=== PATIENT | female | born 1960 | race Caucasian/White ===

== ENCOUNTER 2016-12-22 11:19 | Emergency (ER) | payer OTHER ==
[2016-12-22] MEDS ORDERED: ASPIRIN CHEW 81 MG TABLET PO STA (14:06)
[2016-12-22] MEDS ORDERED: ASPIRIN CHEW 81 MG TABLET ONE (14:09)
== END 2016-12-22 14:41 | disposition home or self-care (01) ==
DX: G45.9 Transient cerebral ischemic attack, unspecified (principal); R03.0 Elevated blood-pressure reading, without diagnosis of hypertension; R29.700 NIHSS score 0
CPT/HCPCS: 36415; 70450; 80053; 83690; 85025; 93005; 93010; 93880; 99283; 99284; A9270

== ENCOUNTER 2017-05-08 07:00 | Day surgery (SDC) | payer OTHER ==
[2017-05-08] MEDS ORDERED: LACTATED RINGERS 1,000 ML IV ONE (07:28)
--- NOTE | 2017-05-08 08:14 | HISTORY & PHYSICAL EXAMINATION ---
HPI - History of Present Illness HPI Comment/Other: History of Present Illness: Consult: Screening colonoscopy....................................................................G marck Burgess RN February 21, 2017 8:22 AM Iza is here for surveillance colonoscopy Current Meds: DAILY MULTIPLE VITAMINS/MIN ORAL TABS (MULTIPLE VITAMINS-MINERALS) ASPIRIN EC 81 MG TBEC (ASPIRIN) Take one tablet by mouth daily Allergies: Past Medical History: Reviewed history and no changes required: Hyperlipidemia TIA Past Surgical History: Reviewed history and no changes required: Colonoscopy age 42 Family History Summary: Reviewed history and no changes required: 02/21/2017 Mother (biol.) - Has Family History of Hypertension - Entered On: 02/21/2017 Father (biol.) - Has Family History of Other Cancer - Entered On: 02/21/2017 General Comments - FH: Prostate cancer Social History: Reviewed history and no changes required: Risk Factors: Smoked Tobacco Use: Never smoker Alcohol use: yes Drinks per day: <1 Exercise: yes Times per week: 7 Review of Systems See HPI Physical Exam General: well developed, well nourished, in no acute distress Lungs: clear bilaterally to A & P Heart: regular rate and rhythm, S1, S2 without murmurs, rubs, gallops, or clicks Abdomen: bowel sounds positive; abdomen soft and non-tender without masses, organomegaly, or hernias noted Pulses: pulses normal in all 4 extremities Extremities: no clubbing, cyanosis, edema, or deformity noted with normal full range of motion of all joints Cervical Nodes: no significant adenopathy Psych: alert and cooperative; normal mood and affect; normal attention span and concentration Problems: Problems Added: 1) Dx of Hyperlipidemia (LER64-E30.5) (ICD-272.4) Impression & Recommendations: Problem # 1: surveillance for colon cancer Will proceed with colonoscopy PMH/PSH - Past Medical History Cardiovascular: positive: Hypertension Respiratory: positive: None Endocrine/Autoimmune: positive: None GI: positive: None : positive: None HEENT: positive: None Psych: positive: None Musculoskeletal: positive: None Derm: positive: None MRSA Hx?: No - Past Surgical History 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 HEENT: positive: Tonsil/Adenoidectomy Social & Family Hx - Social History Does the pt smoke?: No Smoking Status: Never smoker Does the pt drink ETOH?: Yes ETOH Use: Wine, Beer Does the pt have substance abuse?: No - POLST Patient has POLST: No Meds/Allgy - Home Medications Home Medications: Ambulatory Orders Medication Instructions Recorded Confirmed Aspirin [Adult Low Dose Aspirin EC] 1 DAILY 05/08/17 - Allergies Allergies/Adverse Reactions: Allergies Allergy/AdvReac Type Severity Reaction Status Date / Time No Known Drug Allergies Allergy Verified 12/22/16 11:36 Exam - Vital Signs Vital Signs: Vital Signs x48h Temp Pulse Resp BP Pulse Ox 05/08/17 07:12 36.3 C L 81 16 114/86 H 98
[2017-05-08] MEDS ORDERED: MIDAZOLAM 2 MG/2 ML VIAL IVP ONE (08:24)
[2017-05-08] MEDS ORDERED: fentaNYL 100 MCG/2 ML VIAL IVP ONE (08:24)
[2017-05-08 09:32] VITALS: BP 100/56
== END 2017-05-08 07:01 | disposition home or self-care (01) ==
LOC: SDS 07:00
PROVIDERS: ATTEND Surgery
PROC: 0DBH8ZX Excision of Cecum, Via Natural or Artificial Opening Endoscopic, Diagnostic (ICD-10-PCS; principal; 2017-05-08 08:15)
DX: Z12.11 Encounter for screening for malignant neoplasm of colon (principal); D12.0 Benign neoplasm of cecum; K64.8 Other hemorrhoids; K57.30 Diverticulosis of large intestine without perforation or abscess without bleeding; Z80.0 Family history of malignant neoplasm of digestive organs; E78.5 Hyperlipidemia, unspecified; I10 Essential (primary) hypertension; Z79.82 Long term (current) use of aspirin; Z80.42 Family history of malignant neoplasm of prostate; Z86.73 Personal history of transient ischemic attack (TIA), and cerebral infarction without residual deficits
CPT/HCPCS: 45380; J7120; 88305

== ENCOUNTER 2017-08-25 13:16 | Outpatient (CLI) | payer OTHER ==
--- NOTE | 2017-08-26 18:31 | Mammography Report ---
DIGITAL SCREENING MAMMOGRAM: 08/25/2017 CLINICAL INDICATION: A 57-year-old with history of late childbearing for screening. COMPARISON: 02/2016, 02/2014, 02/2013, 01/2012, 01/2011. TECHNIQUE: Routine CC and MLO projections were obtained of the breasts. FINDINGS: Scattered fibroglandular tissue is present within the breasts. There are no dominant mass es, suspicious microcalcifications, or secondary signs of malignancy. In comparison to the previous studies, there are no significant changes. ASSESSMENT: NO MAMMOGRAPHIC EVIDENCE OF MALIGNANCY. NO SIGNIFICANT INTERVAL CHANGES. RECOMMENDATION: Screening mammography is recommended annually. BIRADS category 1 - negative. STANDARD QUALIFYING STATEMENTS 1. This examination was reviewed with the aid of Computed-Aided Detection (CAD). 2. A negative or benign imaging report should not delay biopsy if clinically suspicious findings are present. Consider surgical consultation if warranted. More than 5% of cancers are not identified b y imaging. 3. Dense breasts may obscure an underlying neoplasm. JOB #: [id number] EXT JOB #:[id number]
== END 2017-08-25 13:17 | disposition home or self-care (01) ==
LOC: DI.S 13:16
PROVIDERS: ATTEND Obstetrics & Gynecology
DX: Z12.31 Encounter for screening mammogram for malignant neoplasm of breast (principal)
CPT/HCPCS: 77067

== ENCOUNTER 2019-10-08 09:29 | Outpatient (CLI) | payer OTHER ==
--- NOTE | 2019-10-08 10:28 | Mammography Report ---
Reason: ROUTINE MAMMO Procedure Date: 10/08/2019 Accession Number: [id number] / [id number] Procedure: MGS - Screening Mammo Dig Bilat CPT Code: Final Report FULL RESULT: EXAM: Screening Mammo Dig Bilat DATE: 10/08/2019 9:55 AM CLINICAL HISTORY: Screening encounter. History of late childbearing. TECHNIQUE: (B) - Bilateral CC, laterally exaggerated CC, MLO views were obtained. COMPARISON: 08/25/2017 through 01/22/2011. PARENCHYMAL PATTERN: (D) - The breast(s) demonstrate(s) heterogeneously dense fibroglandular parenchyma. FINDINGS: There are no suspicious masses, calcifications, or areas of distortion. IMPRESSION: Negative examination. BI-RADS category 1. RECOMMENDATION: (ANNUAL) - Recommend routine annual screening mammography. BI-RADS CATEGORY: (1) - Negative. STANDARD QUALIFYING STATEMENTS: 1. This examination was reviewed with the aid of Computer-Aided Detection (CAD). 2. A negative or benign imaging report should not preclude biopsy if clinically suspicious findings are present. 3. Dense breasts may obscure an underlying neoplasm. 4. This examination was reviewed without the aid of 3D breast imaging (tomosynthesis).
== END 2019-10-08 09:30 | disposition home or self-care (01) ==
LOC: DI.S 09:29
PROVIDERS: ATTEND Physician Assistant
DX: Z12.31 Encounter for screening mammogram for malignant neoplasm of breast (principal)
CPT/HCPCS: 77067

== ENCOUNTER 2021-06-04 14:11 | Outpatient (CLI) | payer OTHER ==
--- NOTE | 2021-06-05 13:45 | Mammography Report ---
BILATERAL DIGITAL SCREENING MAMMOGRAM 3D/2D WITH EXAGGERATED CC: 06/04/2021 CLINICAL: Family history of breast cancer. Comparison is made to exams dated: 10/08/2019 mammogram, 08/25/2017 mammogram, 03/01/2016 mammogram, a nd 03/04/2014 mammogram - [facility]. There are scattered fibroglandular elements i n both breasts. No significant masses, calcifications, or other findings are seen in either breast. There has been no significant interval change. IMPRESSION: NEGATIVE There is no mammographic evidence of malignancy. A 1 year screening mammogram is recommended. This exam was interpreted at Station ID: [id number]. NOTE: For mammograms, a report in lay terms will be sent to the patient. Approximately 15% of breast malignancies will not be visualized mammographically. In the management of a palpable breast mass, a negative mammogram must not discourage biopsy of a clinically suspicious lesion. Electronically Signed By: Jamie Goins M.D. slc/penrad:06/04/2021 16:50:38 ACR BI-RADS Category 1: Negative 3341F PARENCHYMAL PATTERN: (A) - The breast(s) demonstrate(s) scattered fibroglandular densities. BI-RADS CATEGORY: (1) - 1 RECOMMENDATION: (ANNUAL) - Recommend routine annual screening mammography. [id number] 1 year screening LATERALITY: (B)
== END 2021-06-04 14:12 | disposition home or self-care (01) ==
LOC: DI.S 14:11
PROVIDERS: ATTEND Physician Assistant
DX: Z12.31 Encounter for screening mammogram for malignant neoplasm of breast (principal)

== ENCOUNTER 2022-08-12 13:58 | Outpatient (CLI) | payer OTHER ==
--- NOTE | 2022-08-13 11:30 | Mammography Report ---
BILATERAL DIGITAL SCREENING MAMMOGRAM 3D/2D: 08/12/2022 CLINICAL: Routine screening. Family history of breast cancer. Comparison is made to exams dated: 06/04/2021 mammogram, 10/08/2019 mammogram, 08/25/2017 mammogram, mammogram, 03/04/2014 mammogram, and 02/15/2013 mammogram - [facility]. There are scattered areas of fibroglandular density in both breasts (category b / 25%-50% glandular t issue). No significant masses, calcifications, or other findings are seen in either breast. There has been no significant interval change. IMPRESSION: NEGATIVE There is no mammographic evidence of malignancy. A 1 year screening mammogram is recommended. Based on the Tyrer Cuzick model (a risk assessment model) the patients lifetime risk is 7.8% and her 10 year risk is 3.1%. According to the ACR, ACS, and NCCN guidelines, an annual breast MRI exam sony g with mammogram is recommended if the patients lifetime risk is 20% or greater. This exam was interpreted at Station ID: [id number]. NOTE: For mammograms, a report in lay terms will be sent to the patient. Approximately 15% of breast malignancies will not be visualized mammographically. In the management of a palpable breast mass, a negative mammogram must not discourage biopsy of a clinically suspicious lesion. Electronically Signed By: Eugene Cortes M.D., jr/samia:08/12/2022 15:25:36 ACR BI-RADS Category 1: Negative 3341F PARENCHYMAL PATTERN: (A) - The breast(s) demonstrate(s) scattered fibroglandular densities. BI-RADS CATEGORY: (1) - 1 RECOMMENDATION: (ANNUAL) - Recommend routine annual screening mammography. [id number] 1 year screening LATERALITY: (B)
== END 2022-08-12 13:59 | disposition home or self-care (01) ==
LOC: DI.S 13:58
PROVIDERS: ATTEND Nurse Practitioner
DX: Z12.31 Encounter for screening mammogram for malignant neoplasm of breast (principal); Z80.3 Family history of malignant neoplasm of breast

== ENCOUNTER 2022-09-06 12:06 | Day surgery (SDC) | payer OTHER ==
[2022-09-06] MEDS ORDERED: LACTATED RINGERS 1,000 ML IV ONE ×2 (12:41→14:59)
--- NOTE | 2022-09-06 14:06 | ANESTHESIA ---
Pre-Anesthesia VS, & Labs - Diagnosis screening, history of polyps - Procedure colonoscopy Vital Signs: Temp Pulse Resp BP Pulse Ox O2 Flow Rate 36.4 C L 77 16 142/100 H 100 09/06/22 12:24 09/06/22 12:24 09/06/22 12:24 09/06/22 12:24 09/06/22 12:24 Height: 5 ft 1 in Weight (kg): 55.5 kg Body Mass Index: 23.1 BMI Classification: Normal - NPO >8 hours - Is Patient ?: No Home Medications and Allergies Aspirin [Adult Low Dose Aspirin EC] 1 DAILY 05/08/17 Allergies/Adverse Reactions: Allergies Allergy/AdvReac Type Severity Reaction Status Date / Time No Known Drug Allergies Allergy Verified 12/22/16 11:36 Anes History & Medical History - Anesthetic History Anesthesia Complications: reports: No previous complications - Medical History Cardiovascular: reports: Hypertension, High cholesterol Pulmonary: reports: None Gastrointestinal: reports: Colon polyps, Diverticulitis, Other Urinary: reports: None Musculoskeletal: reports: None Endocrine/Autoimmune: reports: None Skin: reports: None Smoking Status: Never smoker Psychosocial: reports: Alcohol (rare) History of Cancer?: No - Surgical History General: reports: Colonoscopy Eyes Ears Nose Throat (EENT): reports: Tonsil/Adenoidectomy Gynecologic: reports: Dilation and currettage Exam General: Alert, Oriented x3 Dental: WNL Mouth Opening: Greater than 4 Fingerbreadths Neck Mobility: Normal Mallampati classification: III Thyromental Distance: greater than 6 cm Respiratory: Lungs clear Cardiovascular: Regular rate Plan Anesthesia Type: Total IV Consent for Procedure(s) Verified and Reviewed: Yes Code Status: Attempt Resuscitation ASA classification: 2-Mild systemic disease Is this case an emergency?: No
[2022-09-06] MEDS ORDERED: PROPOFOL 500 MG/50 ML 500 MG/50 ML VIAL ONE (14:22)
[2022-09-06 15:23] VITALS: BP 140/98
--- NOTE | 2022-09-06 15:46 | ANESTHESIA POST OP EVALUATION ---
Anesthesia Post Eval - Post Anesthesia Eval Vitals: Last Vital Signs Temp 36.3 C L 09/06/22 15:21 Pulse 61 09/06/22 15:21 Resp 16 09/06/22 15:21 BP 140/98 H 09/06/22 15:21 Pulse Ox 98 09/06/22 15:21 O2 Flow Rate CV Function Including HR & BP: Stable Pain Control: Satisfactory Nausea & Vomiting: Negative Mental Status: Baseline Respiratory Status: Airway Patent Hydration Status: Satisfactory Anesthesia Complications: None
== END 2022-09-06 12:07 | disposition home or self-care (01) ==
LOC: SDS 12:06
PROVIDERS: ATTEND Surgery
DX: Z12.11 Encounter for screening for malignant neoplasm of colon (principal); K57.30 Diverticulosis of large intestine without perforation or abscess without bleeding; Z86.010 Personal history of colon polyps; Z86.73 Personal history of transient ischemic attack (TIA), and cerebral infarction without residual deficits
CPT/HCPCS: 45378; J7120

== ENCOUNTER 2023-09-05 12:52 | Outpatient (CLI) | payer OTHER ==
--- NOTE | 2023-09-08 11:27 | Mammography Report ---
BILATERAL DIGITAL SCREENING MAMMOGRAM 3D/2D: 09/05/2023 CLINICAL: Routine screening. Comparison is made to exams dated: 08/12/2022 mammogram, 06/04/2021 mammogram, 10/08/2019 mammogram, 1 mammogram, 03/01/2016 mammogram, and 03/04/2014 mammogram - [facility]. There are scattered areas of fibroglandular density in both breasts (category b / 25%-50% glandular t issue). No significant masses, calcifications, or other findings are seen in either breast. IMPRESSION: NEGATIVE There is no mammographic evidence of malignancy. A 1 year screening mammogram is recommended. Based on the Tyrer Cuzick model (a risk assessment model) the patients lifetime risk is 7.4% and her 10 year risk is 3.1%. According to the ACR, ACS, and NCCN guidelines, an annual breast MRI exam sony g with mammogram is recommended if the patients lifetime risk is 20% or greater. This exam was interpreted at Station ID: [id number]. NOTE: For mammograms, a report in lay terms will be sent to the patient. Approximately 15% of breast malignancies will not be visualized mammographically. In the management of a palpable breast mass, a negative mammogram must not discourage biopsy of a clinically suspicious lesion. Electronically Signed By: Sheila bragg/samia:09/07/2023 17:26:16 letter sent: No_Letter ACR BI-RADS Category 1: Negative 3341F PARENCHYMAL PATTERN: (A) - The breast(s) demonstrate(s) scattered fibroglandular densities. BI-RADS CATEGORY: (1) - 1 Mammogram [id number] 1 year screening LATERALITY: (B)
== END 2023-09-05 12:53 | disposition home or self-care (01) ==
LOC: DI 12:52
PROVIDERS: ATTEND Nurse Practitioner
DX: Z12.31 Encounter for screening mammogram for malignant neoplasm of breast (principal); R92.323 Mammographic fibroglandular density, bilateral breasts

== ENCOUNTER 2024-01-22 06:41 | Emergency (ER) | payer OTHER ==
[2024-01-22 07:11] LABS: BASOPHILS % (AUTO) 0.3 %; EOSINOPHILS # (AUTO) 0.1 10^3/uL (0.0-0.7); EOSINOPHILS % (AUTO) 0.9 %; HCT - HEMATOCRIT 50.3 % (37.0-47.0); HGB - HEMOGLOBIN 16.5 g/dL (12.0-16.0); LYMPHOCYTES # (AUTO) 1.3 10^3/uL (1.5-3.5); LYMPHOCYTES % (AUTO) 10.7 %; MEAN CORPUSCULAR HEMOGLOBIN 30.5 pg (27.0-31.0); MEAN CORPUSCULAR HGB CONC 32.8 g/dL (32.0-36.0); MEAN PLATELET VOLUME 9.7 fL (7.9-10.8); MONOCYTES # (AUTO) 0.7 10^3/uL (0.0-1.0); MONOCYTES % (AUTO) 5.7 %; NEUTROPHILS # (AUTO) 9.6 10^3/uL (1.5-6.6); NEUTROPHILS % (AUTO) 82.1 %; PLT - PLATELET COUNT 345 10^3/uL (130-450); RED BLOOD COUNT 5.41 10^6/uL (4.20-5.40); RED CELL DISTRIBUTION WIDTH 13.2 % (12.0-15.0); WHITE BLOOD COUNT 11.7 x10^3/uL (4.8-10.8)
--- NOTE | 2024-01-22 07:28 | ED Physician Documentation ---
PD HPI CHEST PAIN - Stated complaint Stated Complaint: CP - Chief complaint Chief Complaint: Cardiac - History obtained from History obtained from: Patient - Additional information Additional information: Patient is a 63-year-old female with a history of hyperlipidemia presenting for evaluation of midsternal chest pain starting at 4:00 when she woke up this morning. Patient describes the pain as a dull ache. It is worse when taking a deep breath. It does not radiate elsewhere. Nothing else makes the pain worse. She does report maybe it feels a little bit better when sitting up versus lying down. No associated fever, cough, congestion, difficulty breathing, nausea or vomiting. 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 Does take a baby aspirin for possible TIA in the past. Does not currently take medications for her hyperlipidemia she is trying to manage it with diet and exercise. Denies smoking. No recent travel or immobilization. No leg swelling or pain. 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 HEENT: Tonsil/Adenoidectomy - Present Medications Home Medications: Ambulatory Orders Medication Instructions Recorded Confirmed Aspirin [Adult Low Dose Aspirin EC] 81 mg PO DAILY 05/08/17 01/22/24 - Allergies Allergies/Adverse Reactions: Allergies Allergy/AdvReac Type Severity Reaction Status Date / Time No Known Drug Allergies Allergy Verified 01/22/24 06:51 - Social History Does the pt smoke?: No Smoking Status: Never smoker Does the pt drink ETOH?: Yes Does the pt have substance abuse?: No - Immunizations Immunizations are current?: Yes - POLST Patient has POLST: No PD ED PE NORMAL - General General: Alert and oriented X 3, No acute distress, Well developed/nourished - HEENT HEENT: Atraumatic, Moist mucous membranes, Pharynx benign - Neck Neck: No bruit - Cardiac Cardiac: RRR, Strong equal pulses - Respiratory Respiratory: No respiratory distress, Clear bilaterally - Abdomen Abdomen: Normal bowel sounds, Soft, Non tender, Non distended - Derm Derm: Warm and dry - Extremities Extremities: No edema, No calf tenderness / cord - Neuro Neuro: Normal speech Results - Vitals Vitals: Vital Signs - 24 hr 01/22/24 01/22/24 01/22/24 06:48 06:51 07:21 Temperature 36.5 C Heart Rate 113 H 100 91 Respiratory 14 13 16 Rate Blood Pressure 165/124 H 140/104 H O2 Saturation 100 100 100 01/22/24 01/22/24 08:00 09:48 Temperature Heart Rate 81 84 Respiratory 16 16 Rate Blood Pressure 149/103 H 147/92 H O2 Saturation 100 99 Oxygen O2 Source Room air - EKG (time done) 0655 EKG releavant findings:: EKG personally interpreted by author of this note. Relevant findings are: 0841 EKG releavant findings:: EKG personally interpreted by author of this note. Relevant findings are: Rate 82, normal sinus rhythm, no STEMI, no significant change from prior EKG - Labs Labs: Laboratory Tests 01/22/24 01/22/24 01/22/24 06:55 06:55 07:23 WBC 11.7 H RBC 5.41 H Hgb 16.5 H Hct 50.3 H MCV 93.0 MCH 30.5 MCHC 32.8 RDW 13.2 Plt Count 345 MPV 9.7 Neut # (Auto) 9.6 H Lymph # (Auto) 1.3 L [place] # (Auto) 0.7 Eos # (Auto) 0.1 Baso # (Auto) 0.0 Absolute Nucleated RBC 0.00 Nucleated RBC % 0.0 D-Dimer 222.1 Sodium 140 Potassium 3.8 Chloride 104 Carbon Dioxide 27 Anion Gap 9.0 BUN 13 Creatinine 0.7 Estimated GFR (MDRD) 85 L Glucose 99 Calcium 9.8 Total Bilirubin 0.6 AST 28 ALT 19 Alkaline Phosphatase 87 Troponin I High Sens 3.0 Total Protein 7.5 Albumin 4.8 Globulin 2.7 Albumin/Globulin Ratio 1.8 Lipase 21 01/22/24 08:02 WBC RBC Hgb Hct MCV MCH MCHC RDW Plt Count MPV Neut # (Auto) Lymph # (Auto) [place] # (Auto) Eos # (Auto) Baso # (Auto) Absolute Nucleated RBC Nucleated RBC % D-Dimer Sodium Potassium Chloride Carbon Dioxide Anion Gap BUN Creatinine Estimated GFR (MDRD) Glucose Calcium Total Bilirubin AST ALT Alkaline Phosphatase Troponin I High Sens 2.9 Total Protein Albumin Globulin Albumin/Globulin Ratio Lipase PD Medical Decision Making - ED course Complexity details: reviewed results, re-evaluated patient, d/w patient, d/w family ED course: Patient is a 63-year-old female with a history of hyperlipidemia presenting for evaluation of chest pain starting this morning. EKG is reviewed without signs of acute ischemia. CBC, chemistry, troponin and D-dimer were obtained and reviewed and without significant findings.Chest x-ray which I reviewed here does not show pneumonia or cardiomegaly. Repeat troponin remains negative. She is feeling better here. Repeat EKG is also unchanged. She has low risk for ACS per the heart score. No migratory symptoms to suggest dissection. Patient counseled on need for close follow-up with PCP and is well as understands she may need further testing such as a stress test. She is also counseled on strict return precautions for any worsening symptoms. Departure - Departure Disposition: 01 Home, Self Care Clinical Impression: Chest pain Condition: Stable Instructions: ED Chest Pain Atypical Unkn Cause Comments: Your testing at this time does not show signs of a heart attack or blood clot in your lung. However you likely need further testing such as a stress test. I would recommend close follow-up with your primary care provider in the next few days to have this ordered. In the meanwhile continue with taking your aspirin daily. If you develop any worsening symptoms please return to the emergency department. Forms: PCP List Discharge Date/Time: 01/22/24 09:50
[2024-01-22 07:31] LABS: ALBUMIN 4.8 g/dL (3.2-5.5); ALBUMIN/GLOBULIN RATIO 1.8 (1.0-2.2); BILIRUBIN,TOTAL 0.6 mg/dL (0.2-1.0); CALCIUM 9.8 mg/dL (8.5-10.3); CREATININE 0.7 mg/dL (0.6-1.3); POTASSIUM 3.8 mmol/L (3.5-4.5); TOTAL PROTEIN 7.5 g/dL (6.4-8.9)
--- NOTE | 2024-01-22 07:32 | XRAY Report ---
PROCEDURE: Chest 1V INDICATIONS: Chest pain TECHNIQUE: One view of the chest was acquired. COMPARISON: None. FINDINGS: Surgical changes and devices: None. Lungs and pleura: No pleural effusions or pneumothorax. Lungs are clear. Mediastinum: Mediastinal contours appear normal. Heart size is normal. Bones and chest wall: No suspicious bony lesions. Overlying soft tissues appear unremarkable. IMPRESSION: No acute cardiopulmonary process. Reviewed by: Ant Villegas MD on 01/22/2024 7:31 AM [facility] Approved by: Ant Villegas MD on 01/22/2024 7:31 AM PST Station ID: [id number]
[2024-01-22] MEDS: ACETAMINOPHEN 500 MG TABLET PO STA (08:20)
[2024-01-22] MEDS: ASPIRIN 325 MG TABLET PO STA (08:37)
[2024-01-22 09:52] VITALS: BP 147/92; O2SAT 99
== END 2024-01-22 09:50 | disposition home or self-care (01) ==
LOC: ED 06:41
DX: R07.9 Chest pain, unspecified (principal); I10 Essential (primary) hypertension; E78.00 Pure hypercholesterolemia, unspecified; Z86.010 Personal history of colon polyps; Z79.82 Long term (current) use of aspirin
CPT/HCPCS: 36415; 71045; 80053; 83690; 84484; 85025; 85379; 93005; 99283; 99284; A9270